=== PATIENT | male | born 1980 | race Caucasian/White ===

== ENCOUNTER 2020-03-24 06:10 | Day surgery (SDC) | payer BC ==
[~2020-03-24] VITALS: Ht 188 cm; Wt 97.5 kg
[2020-03-24 06:42] VITALS: BP 140/96; Ht 188 cm; Wt 97.5 kg
[2020-03-24] MEDS ORDERED: HYDROCODON-ACE1 EAC7 PO (09:06)
[2020-03-24] MEDS ORDERED: FLOMAX0.4 MG PO (09:07)
[2020-03-24] MEDS ORDERED: FUROSEMIDE20 MG PO (09:07)
--- NOTE | 2020-03-24 09:36 | NUR ---
0930 OPA DISCONTINUED. PATIENT AWAKE AND ALERT. MAINTAINING PATENT AIRWAY
--- NOTE | 2020-03-24 13:18 | NUR ---
1125-AMBULATED TO RESTROOM AND VOIDED WITHOUT COMPLICATIONS. VSS.PAIN 01/05. NO DISTRESS,NO N/V. REMOVED IV WITH CATH INTACT,DISPOSED INTO SHAPRS,COVERED WITH GUAZE,SECURED WITH MEDIPORE TAPE.
--- NOTE | 2020-03-24 13:19 | NUR ---
1138-PT DRESSING. STERI STRIPS CDI. VSS.NO DISTRESS.REVIEWED POST OPERATIVE INSTRUCTIONS AND FOLLOW UP APPOINTMENT.VERBALIZED UNDERSTANDING. ESCORTED OUT VIA W/C WITH SPOUSE AWAITING TO DRIVE HOME.
== END 2020-03-24 11:38 | disposition home or self-care (01) ==
LOC: D.OPS 06:10 → D.PAN 08:00 → D.OPS 08:00
PROVIDERS: ATTEND Surgery
DX: K40.90 Unilateral inguinal hernia, without obstruction or gangrene, not specified as recurrent (principal)